=== PATIENT | female | born 1995 | race Caucasian/White ===

== ENCOUNTER 2016-11-02 17:02 | Emergency (ER) | payer OTHER ==
[2016-11-02 20:02] LABS: BASO % 0.3 % (0.0-1.0); EOS # 0.1 K/mm3 (0.0-0.50); LARGE UNSTAINED CELL # 0.1 K/mm3 (0.0-0.4); LARGE UNSTAINED CELL % 1.3 % (0.0-4.0); LYMPH # 1.9 K/mm3 (1.5-6.5); LYMPH % 17.8 % (24.0-44.0); MEAN CORPUSCULAR HGB CONC 33.4 g/dl (32.0-36.5); MEAN CORPUSCULAR VOLUME 89.7 fl (80.0-96.0); MONO # 0.4 K/mm3 (0.0-0.8); MONO % 3.8 % (0.0-5.0); NEUTROPHILS % 75.9 % (36.0-66.0); PLATELET COUNT, AUTOMATED 284 k/mm3 (150-450); RED CELL DISTRIBUTION WIDTH 11.9 % (11.5-14.5); WHITE BLOOD COUNT 10.6 K/mm3 (4.0-10.0)
--- NOTE | 2016-11-02 20:52 | REP ---
Clinical: Early with vaginal bleeding. Technique: Transabdominal obstetrical ultrasound with color Doppler evaluation of the presumed fetus and maternal ovaries. Findings: Single live intrauterine identified. CRL of 6.8 cm corresponds to 13 weeks 0 days gestational age with estimated date of delivery 05/10/2017. heart rate equals 165 beats per minute. No gross abnormalities are identified. Anteverted uterus. Posterior placenta rate zero. Amniotic fluid volume is subjectively normal. Right maternal ovary measures 4.9 x 1.8 x 3.0 cm. Left maternal ovary measures 3.8 x 2.2 x 4.6 cm. No significant pelvic fluid. Impression: Single live early intrauterine at 13 weeks 0 days gestational age. Complete anatomical assessment should be performed at 19-20 weeks. Signed by Noé Hurst MD 11/02/2016 08:43 P
--- NOTE | 2016-11-02 22:40 | EDDOCDS ---
Nurse's Notes [facility] Name: Khloe Dickson Age: 20 yrs Sex: Female : 1995 Arrival Date: 11/02/2016 Time: 17:02 Bed I3 / M3 Private MD: NO PRIMARY PHYSICIAN, . Diagnosis: Threatened Presentation: 11/02 17:13 Presenting complaint: Patient states: she was treating a yeast infection with cream and kcs noticed some blood - not sure if it is anything due to the . Risk factors: The patient reports no loss of conciousness prior to arrival. This patient has not had a hysterectomy. This patient has not begun menopause. Adult Sepsis Screening: The patient does not have new or worsening altered mentation. Patient's respiratory rate is less than 22. Systolic blood pressure is greater than 100. Patient has a qSOFA score of 0- Negative Sepsis Screen. Suicide/Homicide risk assessment- the patient denies having any suicidal and/or homicidal ideations and does not present with any other emotional, behavioral or mental health complaints. Status: The patient is a dependent. Transition of care: patient was not received from another setting of care. 17:13 Acuity: ELDER Level 4 kcs 17:13 Method Of Arrival: Walkin/Carried/Asstd kcs Triage Assessment: 17:15 General: Appears comfortable, well developed, well nourished, well groomed, Behavior is kcs cooperative, pleasant. Pain: Location: bilateral lower abdomen Pain currently is 0 out of 10 on a pain scale. HIV screening NA for this visit done during . Neurological: Level of Consciousness is awake, alert. Respiratory: Airway is patent Respiratory effort is even, unlabored, Respiratory pattern is regular, symmetrical. Derm: Skin is intact, is healthy with good turgor, Skin is dry, Skin is brown. [employer] DEVELOPER: 17:15 1, Full Term 0, Premature 0, 0, Living 0, LMP 08/02/2016 kcs Historical: - Allergies: No known drug Allergies; - Home Meds: 1. Oral 1 tablet daily - PMHx: none; - PSHx: Adenoidectomy; Tonsillectomy; - Social history: Smoking status: Patient states former smoker of tobacco. No barriers to communication noted, The patient speaks fluent Irish. - Family history: Not pertinent. - : The pt / caregiver states he / she is not on anticoagulants. Home medication list is obtained from the patient. - Exposure Risk Screening:: None identified. Screenin:47 Screening information is obtained from the patient. Fall risk: No risks identified. [facility] Assistance ADL's: requires no assistance with activities of daily living. Abuse/DV Screen: The patient / caregiver reports he/she is: not in a situation that causes fear, pain or injury. Nutritional screening: No deficits noted. Advance Directives: There is no active DNR order. home support is adequate. Assessment: 19:47 General: Appears in no apparent distress, comfortable, Behavior is appropriate for age, cjh cooperative, reports scant bleeding that has stopped. Pain: Denies pain. Respiratory: Airway is patent Respiratory effort is even, unlabored, Respiratory pattern is regular, symmetrical. : Reports vaginal bleeding that is light flow. Derm: Skin is pink, warm & dry. 22:38 General: Patient instructed on discharge instructions. Patient asked if there were any jmb questions regarding discharge, patient stated no. Patient signed discharge instructions. IV discontinued per hospital policy. Patient discharged in stable condition. . Vital Signs: 17:04 BP 146 / 76; Pulse 106; Resp 18 S; Temp 98.4(O); Pulse Ox 100% on R/A; Weight 89.36 kg dd6 (R); Height 5 ft. 4 in. (162.56 cm) (R); 22:36 BP 144 / 76 RA Sitting (auto/reg); Pulse 88 MON; Resp 18 S; Temp 98.6(TE); Pulse Ox 99% cln on R/A; Pain 0/10; 17:04 Body Mass Index 33.81 (89.36 kg, 162.56 cm) dd6 Vitals: 17:04 Log In Time: November 02, 2016 at 17:02. dd6 ED Course: 17:03 Patient visited by Jose Wade PCA. dd6 17:03 NO PRIMARY PHYSICIAN, . is Private Physician. dd6 17:03 Patient moved to Waiting dd6 17:05 Patient moved to Pre RCE dd6 17:14 Triage Initiated kcs 18:49 Patient moved to Triage 3 kcs 19:00 Hua Chen RPA-C is PHCP. ck7 19:00 Michelle Woodruff MD is Attending Physician. ck7 19:00 Patient visited by Hua Chen RPA-C. ck7 19:12 Patient moved to I3 / M3 ar3 19:47 The patient / caregiver is instructed regarding the plan of care and ED course. [facility] 19:47 Inserted saline lock: 20 gauge in left antecubital area and blood collected. Labs [facility] drawn. (by ED staff). Sent per order to lab. 19:57 Patient visited by Shonda Turner RN. [facility] 20:19 Patient moved to Ultrasound dmg 20:40 Patient moved to I3 / M3 dmg 20:42 Patient visited by Hua Chen RPA-C. ck7 20:59 US 1st trimester Returned. EDMS 21:17 Patient visited by Hua Chen RPA-C. ck7 21:35 [facility] Payment Agreement was scanned into [employer] and attached to record. gjb 21:57 Patient visited by Hua Chen RPA-C. ck7 22:07 Patient name changed from Khloe\S\\S\Dickson\S\ to Khloe\S\ \S\Dickson. EDMS 22:30 Patient visited by Hua Chen RPA-C. ck7 22:31 Prateek Dos Santos CNM is Referral Physician. ck7 22:37 Patient visited by Latisha Chavarria PCA. cln 22:38 Discontinued lock intact, bleeding controlled, pressure dressing applied, No jmb redness/swelling at site. No procedures done that require assistance. Administered Medications: 19:44 Drug: NS 0.9% 1000 ml [sodium chloride 0.9 % intravenous solution] Route: IV; Rate: jmb bolus; Site: left antecubital; Order Results: Lab Order: CBC with Diff; SPEC'M 11/02/16 19:40 Test: WHITE BLOOD COUNT; Value: 10.6; Range: 4.0-10.0; Abnormal: Above high normal; Units: K/mm3; Status: F Test: RED BLOOD COUNT; Value: 4.17; Range: 4.00-5.40; Units: M/mm3; Status: F Test: HEMOGLOBIN; Value: 12.5; Range: 12.0-16.0; Units: g/dl; Status: F Test: HEMATOCRIT; Value: 37.4; Range: 36.0-47.0; Units: %; Status: F Test: MEAN CORPUSCULAR VOLUME; Value: 89.7; Range: 80.0-96.0; Units: fl; Status: F Test: MEAN CORPUSCULAR HEMOGLOBIN; Value: 30.0; Range: 27.0-33.0; Units: pg; Status: F Test: MEAN CORPUSCULAR HGB CONC; Value: 33.4; Range: 32.0-36.5; Units: g/dl; Status: F Test: RED CELL DISTRIBUTION WIDTH; Value: 11.9; Range: 11.5-14.5; Units: %; Status: F Test: PLATELET COUNT, AUTOMATED; Value: 284; Range: 150-450; Units: k/mm3; Status: F Test: NEUTROPHILS %; Value: 75.9; Range: 36.0-66.0; Abnormal: Above high normal; Units: %; Status: F Test: LYMPH %; Value: 17.8; Range: 24.0-44.0; Abnormal: Below low normal; Units: %; Status: F Test: MONO %; Value: 3.8; Range: 0.0-5.0; Units: %; Status: F Test: EOS %; Value: 1.0; Range: 0.0-3.0; Units: %; Status: F Test: BASO %; Value: 0.3; Range: 0.0-1.0; Units: %; Status: F Test: LARGE UNSTAINED CELL %; Value: 1.3; Range: 0.0-4.0; Units: %; Status: F Test: NEUTROPHILS #; Value: 8.0; Range: 1.8-7.7; Abnormal: Above high normal; Units: K/mm3; Status: F Test: LYMPH #; Value: 1.9; Range: 1.5-6.5; Units: K/mm3; Status: F Test: MONO #; Value: 0.4; Range: 0.0-0.8; Units: K/mm3; Status: F Test: EOS #; Value: 0.1; Range: 0.0-0.50; Units: K/mm3; Status: F Test: BASO #; Value: 0.0; Range: 0.0-0.2; Units: K/mm3; Status: F Test: LARGE UNSTAINED CELL #; Value: 0.1; Range: 0.0-0.4; Units: K/mm3; Status: F Lab Order: UA; SPEC'M 11/02/16 19:40 Test: APPEARANCE, URINE; Value: HAZY; Range: CLEAR; Status: F Test: COLOR, URINE; Value: YELLOW; Range: YELLOW; Status: F Test: PH,URINE; Value: 6.0; Range: 5.0-9.0; Units: UNITS; Status: F Test: SPECIFIC GRAVITY URINE AUTO; Value: 1.016; Range: 1.002-1.035; Status: F Test: PROTEIN, URINE AUTO; Value: NEGATIVE; Range: NEGATIVE; Units: mg/dL; Status: F Test: GLUCOSE, URINE (UA) AUTO; Value: NEGATIVE; Range: NEGATIVE; Units: mg/dL; Status: F Test: KETONE, URINE AUTO; Value: 1+; Range: NEGATIVE; Abnormal: Above high normal; Units: mg/dL; Status: F Test: UROBILINOGEN, URINE AUTO; Value: 0.2; Range: 0.0-2.0; Units: mg/dL; Status: F Test: BILIRUBIN, URINE AUTO; Value: NEGATIVE; Range: NEGATIVE; Status: F Test: NITRITE, URINE AUTO; Value: NEGATIVE; Range: NEGATIVE; Status: F Test: LEUKOCYTE ESTERASE, URINE AUTO; Value: NEGATIVE; Range: NEGATIVE; Status: F Test: BLOOD, URINE BLOOD; Value: NEGATIVE; Range: NEGATIVE; Status: F Test: WBC, URINE AUTO; Value: 2; Range: 0-3; Units: /HPF; Status: F Test: RBC, URINE AUTO; Value: 2; Range: 0-3; Units: /HPF; Status: F Test: BACTERIA, URINE AUTO; Value: 2+; Range: NEGATIVE; Abnormal: Above high normal; Status: F Test: SQUAMOUS EPITHELIAL CELL UR AU; Value: 5; Range: 0-6; Units: /HPF; Status: F Test: MUCUS, URINE; Value: SMALL; Range: NEGATIVE; Status: F Test: HYALINE CAST, URINE AUTO; Value: 0; Range: 0-1; Units: /LPF; Status: F Lab Order: Type & Screen; SPEC'M 11/02/16 19:40 Test: BLOOD TYPE; Value: A POS; Status: F Test: AB SCREEN (INDIRECT RENEE)GEL; Value: NEGATIVE; Status: F Lab Order: Hcg, Serum Quantitative; GIANNA 11/02/16 19:40 Test: HCG, SERUM QUANTITATIVE; Value: 25131; Units: MIU/ML; Status: F Test Note: ; GESTATIONAL AGE APPROXIMATE HCG RANGE (MIU/ML) 0.2-1 WEEK 5-50 1-2 WEEKS 50-500 2-3 WEEKS 100-5,000 3-4 WEEKS 500-10,000 4-5 WEEKS 1,000-50,000 5-6 WEEKS 10,000-100,000 6-8 WEEKS 15,000-200,000 2-3 MONTHS 10,000-100,000 NON FEMALES LESS THAN 3.0 Patient samples may contain human heterophilic antibodies that could react with immunoassays to give falsely elevated or depressed results. This assay has been designed to minimize interference from heterophilic antibodies. Elevated hCG levels have also been associated with trophoblastic disease and nontrophoblastic neoplasms. The possibility of having these diseases should be considered before a diagnosis of is made. This test is not intended for use as a surrogate marker for aiding in the diagnosis or monitoring the treatment of cancer patients. Siemens [employer] methodology. Lab Order: Wet Prep; GIANNA 11/02/16 21:30 Test: WET PREP; Value: WET PREP RESULT; Status: F Test: WET PREP; Value: FEW WBC; Status: F Test: WET PREP; Value: FEW EPITHELIAL CELLS PRESENT; Status: F Test: WET PREP; Value: MODERATE LONG RODS PRESENT; Status: F Radiology Order: US 1st trimester Test: US 1st trimester REASON FOR EXAMINATION: Bleeding; Clinical: Early with vaginal bleeding.; ; Technique: Transabdominal obstetrical ultrasound with color Doppler evaluation; of the presumed fetus and maternal ovaries.; ; Findings:; Single live intrauterine identified. CRL of 6.8 cm corresponds to 13; weeks 0 days gestational age with estimated date of delivery 05/10/2017. ; heart rate equals 165 beats per minute. No gross abnormalities are identified.; ; Anteverted uterus. Posterior placenta rate zero. Amniotic fluid volume is; subjectively normal. Right maternal ovary measures 4.9 x 1.8 x 3.0 cm. Left; maternal ovary measures 3.8 x 2.2 x 4.6 cm. No significant pelvic fluid.; ; Impression:; Single live early intrauterine at 13 weeks 0 days gestational age.; Complete anatomical assessment should be performed at 19-20 weeks.; ; ; Signed by; Noé Hurst MD 11/02/2016 08:43 P; Outcome: 22:31 Discharge ordered by Provider. ck7 22:38 Discharge Assessment: Patient awake, alert and oriented x 3. No cognitive and/or jmb functional deficits noted. Patient verbalized understanding of disposition instructions. Patient awake and alert. obeys commands, Oriented to person, place and time. Patient verbalized understanding of disposition instructions. Patient has no functional deficits. patient administered narcotics - no. The following High Risk Discharge criteria are identified: None. Discharged to home ambulatory. Condition: stable Condition: improved. Discharge instructions given to patient, Instructed on discharge instructions, follow up and referral plans. Demonstrated understanding of instructions, Pt was receptive of discharge instructions/ teaching. Ultrasound Study completed. Property sent home with patient. 22:40 Patient left the ED. bertin Signatures: Dispatcher [employer] EDMS Sophie Parker, RN Briana Ovalles Daniell, COMMERCIAL ART INSTRUCTOR COMMERCIAL ART INSTRUCTOR dd6 Allyson Foy, COMMERCIAL ART INSTRUCTOR COMMERCIAL ART INSTRUCTOR ar3 Shonda Turner RN RN cjh Kwaczala, Christopher, RPA-C RPA-Cck7 George WoodsRN Yolis Yap Crystal, COMMERCIAL ART INSTRUCTOR COMMERCIAL ART INSTRUCTOR cln MTDD
--- NOTE | 2016-11-02 22:40 | EDDOCDS ---
Physician Documentation [facility] Name: Khloe Dickson Age: 20 yrs Sex: Female : 1995 Arrival Date: 11/02/2016 Time: 17:02 Bed I3 / M3 Private MD: NO PRIMARY PHYSICIAN, . Disposition: 11/02/16 22:31 Discharged to Home/Self Care. Impression: Threatened . - Condition is Stable. - Discharge Instructions: Threatened Miscarriage, Pelvic Rest. - Medication Reconciliation, Local Pharmacy Hours form. - Follow up: Prateek Dos Santos CNM; When: 1 - 2 days; Reason: Recheck today's complaints, Continuance of care. - Problem is new. - Symptoms have improved. - Notes: FOLLOW UP WITH YOUR OB DOCTOR IN 1-2 DAYS, RETURN TO THE ER IF THE BLEEDING INCREASES OR PAIN INCREASES Historical: - Allergies: No known drug Allergies; - Home Meds: 1. Oral 1 tablet daily - PMHx: none; - PSHx: Adenoidectomy; Tonsillectomy; - Social history: Smoking status: Patient states former smoker of tobacco. No barriers to communication noted, The patient speaks fluent Finnish. - Family history: Not pertinent. - : The pt / caregiver states he / she is not on anticoagulants. Home medication list is obtained from the patient. - Exposure Risk Screening:: None identified. 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 4 in. (162.56 cm) (R); 22:36 BP 144 / 76 RA Sitting (auto/reg); Pulse 88 MON; Resp 18 S; Temp 98.6(TE); Pulse Ox 99% cln on R/A; Pain 0/10; 17:04 Body Mass Index 33.81 (89.36 kg, 162.56 cm) dd6 MDM: 19:16 Set up pelvic ordered. ck7 19:16 IV Saline Lock ordered. ck7 19:16 NS 0.9% 1000 ml IV at bolus once ordered. ck7 19:17 Type & Screen Ordered. EDMS 19:17 CBC with Diff Ordered. EDMS 19:17 UA Ordered. EDMS 19:17 Hcg, Serum Quantitative Ordered. EDMS 19:17 GC & Chlamydia Amplification Ordered. EDMS 19:17 Urine Culture Ordered. EDMS 19:17 Wet Prep Ordered. EDMS 19:18 US 1st trimester Ordered. EDMS 21:17 CBC with Diff Reviewed. ck7 21:17 UA Reviewed. ck7 21:17 Type & Screen Reviewed. ck7 21:17 Hcg, Serum Quantitative Reviewed. ck7 21:17 US 1st trimester Reviewed. ck7 21:20 Financial registration complete. gjb 21:35 [facility] Payment Agreement was scanned into [employer] and attached to record. gjb 22:11 Wet Prep Reviewed. ck7 Administered Medications: 19:44 Drug: NS 0.9% 1000 ml [sodium chloride 0.9 % intravenous solution] Route: IV; Rate: jmb bolus; Site: left antecubital; Signatures: Dispatcher [employer] Sophie Chin, RN Shonda LemusRN RN [facility] Hua Chen, RPA-C RPA-Cck7 George Woods RN RN jmb Beck, Gabriela gjb The chart was reviewed and I authenticate all verbal orders and agree with the evaluation and treatment provided.Attachments: 21:35 [facility] Payment Agreement gj MTDD
--- NOTE | 2016-11-04 23:41 | EDDOCDS ---
Physician Documentation [facility] Name: Khloe Dickson Age: 20 yrs Sex: Female : 1995 Arrival Date: 11/02/2016 Time: 17:02 Bed I3 / M3 Private MD: NO PRIMARY PHYSICIAN, . Disposition: 11/02/16 22:31 Discharged to Home/Self Care. Impression: Threatened . - Condition is Stable. - Discharge Instructions: Threatened Miscarriage, Pelvic Rest. - Medication Reconciliation, Local Pharmacy Hours form. - Follow up: Prateek Dos Santos CNM; When: 1 - 2 days; Reason: Recheck today's complaints, Continuance of care. - Problem is new. - Symptoms have improved. - Notes: FOLLOW UP WITH YOUR OB DOCTOR IN 1-2 DAYS, RETURN TO THE ER IF THE BLEEDING INCREASES OR PAIN INCREASES Historical: - Allergies: No known drug Allergies; - Home Meds: 1. Oral 1 tablet daily - PMHx: none; - PSHx: Adenoidectomy; Tonsillectomy; - Social history: Smoking status: Patient states former smoker of tobacco. No barriers to communication noted, The patient speaks fluent Czech. - Family history: Not pertinent. - : The pt / caregiver states he / she is not on anticoagulants. Home medication list is obtained from the patient. - Exposure Risk Screening:: None identified. 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 4 in. (162.56 cm) (R); 22:36 BP 144 / 76 RA Sitting (auto/reg); Pulse 88 MON; Resp 18 S; Temp 98.6(TE); Pulse Ox 99% cln on R/A; Pain 0/10; 17:04 Body Mass Index 33.81 (89.36 kg, 162.56 cm) dd6 MDM: 19:16 Set up pelvic ordered. ck7 19:16 IV Saline Lock ordered. ck7 19:16 NS 0.9% 1000 ml IV at bolus once ordered. ck7 19:17 Type & Screen Ordered. EDMS 19:17 CBC with Diff Ordered. EDMS 19:17 UA Ordered. EDMS 19:17 Hcg, Serum Quantitative Ordered. EDMS 19:17 GC & Chlamydia Amplification Ordered. EDMS 19:17 Urine Culture Ordered. EDMS 19:17 Wet Prep Ordered. EDMS 19:18 US 1st trimester Ordered. EDMS 21:17 CBC with Diff Reviewed. ck7 21:17 UA Reviewed. ck7 21:17 Type & Screen Reviewed. ck7 21:17 Hcg, Serum Quantitative Reviewed. ck7 21:17 US 1st trimester Reviewed. ck7 21:20 Financial registration complete. gjb 21:35 [facility] Payment Agreement was scanned into [email or web address] and attached to record. gjb 22:11 Wet Prep Reviewed. ck7 11/03 05:35 T-Sheet-- Draft Copy was scanned into [email or web address] and attached to record. lja Administered Medications: 11/02 19:44 Drug: NS 0.9% 1000 ml [sodium chloride 0.9 % intravenous solution] Route: IV; Rate: jmb bolus; Site: left antecubital; Signatures: Dispatcher [employer] Sophie Chin RN RN kcs Hafner, Jane, RN RN cjh Kwaczala, Christopher, RPA-C RPA-Cck7 George WoodsRN RADHA Gonzalez, Yolis Alvarado The chart was reviewed and I authenticate all verbal orders and agree with the evaluation and treatment provided.Attachments: 21:35 [facility] Payment Agreement gjb 11/03 05:35 T-Sheet-- Draft Copy debra Chart Complete MTDD
--- NOTE | 2016-11-04 23:41 | EDDOCDS ---
Physician Documentation [facility] Name: Khloe Dickson Age: 20 yrs Sex: Female : 1995 Arrival Date: 11/02/2016 Time: 17:02 Bed I3 / M3 Private MD: NO PRIMARY PHYSICIAN, . Disposition: 11/02/16 22:31 Discharged to Home/Self Care. Impression: Threatened . - Condition is Stable. - Discharge Instructions: Threatened Miscarriage, Pelvic Rest. - Medication Reconciliation, Local Pharmacy Hours form. - Follow up: Prateek Dos Santos CNM; When: 1 - 2 days; Reason: Recheck today's complaints, Continuance of care. - Problem is new. - Symptoms have improved. - Notes: FOLLOW UP WITH YOUR OB DOCTOR IN 1-2 DAYS, RETURN TO THE ER IF THE BLEEDING INCREASES OR PAIN INCREASES Historical: - Allergies: No known drug Allergies; - Home Meds: 1. Oral 1 tablet daily - PMHx: none; - PSHx: Adenoidectomy; Tonsillectomy; - Social history: Smoking status: Patient states former smoker of tobacco. No barriers to communication noted, The patient speaks fluent Sinhala. - Family history: Not pertinent. - : The pt / caregiver states he / she is not on anticoagulants. Home medication list is obtained from the patient. - Exposure Risk Screening:: None identified. 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 4 in. (162.56 cm) (R); 22:36 BP 144 / 76 RA Sitting (auto/reg); Pulse 88 MON; Resp 18 S; Temp 98.6(TE); Pulse Ox 99% cln on R/A; Pain 0/10; 17:04 Body Mass Index 33.81 (89.36 kg, 162.56 cm) dd6 MDM: 19:16 Set up pelvic ordered. ck7 19:16 IV Saline Lock ordered. ck7 19:16 NS 0.9% 1000 ml IV at bolus once ordered. ck7 19:17 Type & Screen Ordered. EDMS 19:17 CBC with Diff Ordered. EDMS 19:17 UA Ordered. EDMS 19:17 Hcg, Serum Quantitative Ordered. EDMS 19:17 GC & Chlamydia Amplification Ordered. EDMS 19:17 Urine Culture Ordered. EDMS 19:17 Wet Prep Ordered. EDMS 19:18 US 1st trimester Ordered. EDMS 21:17 CBC with Diff Reviewed. ck7 21:17 UA Reviewed. ck7 21:17 Type & Screen Reviewed. ck7 21:17 Hcg, Serum Quantitative Reviewed. ck7 21:17 US 1st trimester Reviewed. ck7 21:20 Financial registration complete. gjb 21:35 [facility] Payment Agreement was scanned into [employer] and attached to record. gjb 22:11 Wet Prep Reviewed. ck7 11/03 05:35 T-Sheet-- Draft Copy was scanned into [employer] and attached to record. lja Administered Medications: 11/02 19:44 Drug: NS 0.9% 1000 ml [sodium chloride 0.9 % intravenous solution] Route: IV; Rate: jmb bolus; Site: left antecubital; Signatures: Dispatcher [employer] Sophie Chin RN RN kcs Hafner, Jane, RN RN cjh Kwaczala, Christopher, RPA-C RPA-Cck7 George WoodsRN RADHA Gonzalez, Yolis Alvarado The chart was reviewed and I authenticate all verbal orders and agree with the evaluation and treatment provided.Attachments: 21:35 [facility] Payment Agreement gjb 11/03 05:35 T-Sheet-- Draft Copy debra Chart Complete MTDD
--- NOTE | 2016-11-04 23:41 | EDDOCDS ---
Nurse's Notes [facility] Name: Khloe Dickson Age: 20 yrs Sex: Female : 1995 Arrival Date: 11/02/2016 Time: 17:02 Bed I3 / M3 Private MD: NO PRIMARY PHYSICIAN, . Diagnosis: Threatened Presentation: 11/02 17:13 Presenting complaint: Patient states: she was treating a yeast infection with cream and kcs noticed some blood - not sure if it is anything due to the . Risk factors: The patient reports no loss of conciousness prior to arrival. This patient has not had a hysterectomy. This patient has not begun menopause. Adult Sepsis Screening: The patient does not have new or worsening altered mentation. Patient's respiratory rate is less than 22. Systolic blood pressure is greater than 100. Patient has a qSOFA score of 0- Negative Sepsis Screen. Suicide/Homicide risk assessment- the patient denies having any suicidal and/or homicidal ideations and does not present with any other emotional, behavioral or mental health complaints. Status: The patient is a dependent. Transition of care: patient was not received from another setting of care. 17:13 Acuity: ELDER Level 4 kcs 17:13 Method Of Arrival: Walkin/Carried/Asstd kcs Triage Assessment: 17:15 General: Appears comfortable, well developed, well nourished, well groomed, Behavior is kcs cooperative, pleasant. Pain: Location: bilateral lower abdomen Pain currently is 0 out of 10 on a pain scale. HIV screening NA for this visit done during . Neurological: Level of Consciousness is awake, alert. Respiratory: Airway is patent Respiratory effort is even, unlabored, Respiratory pattern is regular, symmetrical. Derm: Skin is intact, is healthy with good turgor, Skin is dry, Skin is brown. SCRIPT GIRL: 17:15 1, Full Term 0, Premature 0, 0, Living 0, LMP 08/02/2016 kcs Historical: - Allergies: No known drug Allergies; - Home Meds: 1. Oral 1 tablet daily - PMHx: none; - PSHx: Adenoidectomy; Tonsillectomy; - Social history: Smoking status: Patient states former smoker of tobacco. No barriers to communication noted, The patient speaks fluent Syriac. - Family history: Not pertinent. - : The pt / caregiver states he / she is not on anticoagulants. Home medication list is obtained from the patient. - Exposure Risk Screening:: None identified. Screenin:47 Screening information is obtained from the patient. Fall risk: No risks identified. [facility] Assistance ADL's: requires no assistance with activities of daily living. Abuse/DV Screen: The patient / caregiver reports he/she is: not in a situation that causes fear, pain or injury. Nutritional screening: No deficits noted. Advance Directives: There is no active DNR order. home support is adequate. Assessment: 19:47 General: Appears in no apparent distress, comfortable, Behavior is appropriate for age, cjh cooperative, reports scant bleeding that has stopped. Pain: Denies pain. Respiratory: Airway is patent Respiratory effort is even, unlabored, Respiratory pattern is regular, symmetrical. : Reports vaginal bleeding that is light flow. Derm: Skin is pink, warm & dry. 22:38 General: Patient instructed on discharge instructions. Patient asked if there were any jmb questions regarding discharge, patient stated no. Patient signed discharge instructions. IV discontinued per hospital policy. Patient discharged in stable condition. . Vital Signs: 17:04 BP 146 / 76; Pulse 106; Resp 18 S; Temp 98.4(O); Pulse Ox 100% on R/A; Weight 89.36 kg dd6 (R); Height 5 ft. 4 in. (162.56 cm) (R); 22:36 BP 144 / 76 RA Sitting (auto/reg); Pulse 88 MON; Resp 18 S; Temp 98.6(TE); Pulse Ox 99% cln on R/A; Pain 0/10; 17:04 Body Mass Index 33.81 (89.36 kg, 162.56 cm) dd6 Vitals: 17:04 Log In Time: November 02, 2016 at 17:02. dd6 ED Course: 17:03 Patient visited by Jose Wade PCA. dd6 17:03 NO PRIMARY PHYSICIAN, . is Private Physician. dd6 17:03 Patient moved to Waiting dd6 17:05 Patient moved to Pre RCE dd6 17:14 Triage Initiated kcs 18:49 Patient moved to Triage 3 kcs 19:00 Hua Chen RPA-C is PHCP. ck7 19:00 Michelle Woodruff MD is Attending Physician. ck7 19:00 Patient visited by Hua Chen RPA-C. ck7 19:12 Patient moved to I3 / M3 ar3 19:47 The patient / caregiver is instructed regarding the plan of care and ED course. [facility] 19:47 Inserted saline lock: 20 gauge in left antecubital area and blood collected. Labs [facility] drawn. (by ED staff). Sent per order to lab. 19:57 Patient visited by Shonda Turner RN. [facility] 20:19 Patient moved to Ultrasound dmg 20:40 Patient moved to I3 / M3 dmg 20:42 Patient visited by Hua Chen RPA-C. ck7 20:59 US 1st trimester Returned. EDMS 21:17 Patient visited by Hua Chen RPA-C. ck7 21:35 [facility] Payment Agreement was scanned into [employer] and attached to record. gjb 21:57 Patient visited by Hua Chen RPA-C. ck7 22:07 Patient name changed from Khloe\S\\S\Dickson\S\ to Khloe\S\ \S\Dickson. EDMS 22:30 Patient visited by Hua Chen RPA-C. ck7 22:31 Prateek Dos Santos CNM is Referral Physician. ck7 22:37 Patient visited by Latisha Chavarria PCA. cln 22:38 Discontinued lock intact, bleeding controlled, pressure dressing applied, No jmb redness/swelling at site. No procedures done that require assistance. 11/03 05:35 T-Sheet-- Draft Copy was scanned into [employer] and attached to record. hennaa Administered Medications: 11/02 19:44 Drug: NS 0.9% 1000 ml [sodium chloride 0.9 % intravenous solution] Route: IV; Rate: jmb bolus; Site: left antecubital; Order Results: Lab Order: CBC with Diff; SPEC'M 11/02/16 19:40 Test: WHITE BLOOD COUNT; Value: 10.6; Range: 4.0-10.0; Abnormal: Above high normal; Units: K/mm3; Status: F Test: RED BLOOD COUNT; Value: 4.17; Range: 4.00-5.40; Units: M/mm3; Status: F Test: HEMOGLOBIN; Value: 12.5; Range: 12.0-16.0; Units: g/dl; Status: F Test: HEMATOCRIT; Value: 37.4; Range: 36.0-47.0; Units: %; Status: F Test: MEAN CORPUSCULAR VOLUME; Value: 89.7; Range: 80.0-96.0; Units: fl; Status: F Test: MEAN CORPUSCULAR HEMOGLOBIN; Value: 30.0; Range: 27.0-33.0; Units: pg; Status: F Test: MEAN CORPUSCULAR HGB CONC; Value: 33.4; Range: 32.0-36.5; Units: g/dl; Status: F Test: RED CELL DISTRIBUTION WIDTH; Value: 11.9; Range: 11.5-14.5; Units: %; Status: F Test: PLATELET COUNT, AUTOMATED; Value: 284; Range: 150-450; Units: k/mm3; Status: F Test: NEUTROPHILS %; Value: 75.9; Range: 36.0-66.0; Abnormal: Above high normal; Units: %; Status: F Test: LYMPH %; Value: 17.8; Range: 24.0-44.0; Abnormal: Below low normal; Units: %; Status: F Test: MONO %; Value: 3.8; Range: 0.0-5.0; Units: %; Status: F Test: EOS %; Value: 1.0; Range: 0.0-3.0; Units: %; Status: F Test: BASO %; Value: 0.3; Range: 0.0-1.0; Units: %; Status: F Test: LARGE UNSTAINED CELL %; Value: 1.3; Range: 0.0-4.0; Units: %; Status: F Test: NEUTROPHILS #; Value: 8.0; Range: 1.8-7.7; Abnormal: Above high normal; Units: K/mm3; Status: F Test: LYMPH #; Value: 1.9; Range: 1.5-6.5; Units: K/mm3; Status: F Test: MONO #; Value: 0.4; Range: 0.0-0.8; Units: K/mm3; Status: F Test: EOS #; Value: 0.1; Range: 0.0-0.50; Units: K/mm3; Status: F Test: BASO #; Value: 0.0; Range: 0.0-0.2; Units: K/mm3; Status: F Test: LARGE UNSTAINED CELL #; Value: 0.1; Range: 0.0-0.4; Units: K/mm3; Status: F Lab Order: UA; SPEC'M 11/02/16 19:40 Test: APPEARANCE, URINE; Value: HAZY; Range: CLEAR; Status: F Test: COLOR, URINE; Value: YELLOW; Range: YELLOW; Status: F Test: PH,URINE; Value: 6.0; Range: 5.0-9.0; Units: UNITS; Status: F Test: SPECIFIC GRAVITY URINE AUTO; Value: 1.016; Range: 1.002-1.035; Status: F Test: PROTEIN, URINE AUTO; Value: NEGATIVE; Range: NEGATIVE; Units: mg/dL; Status: F Test: GLUCOSE, URINE (UA) AUTO; Value: NEGATIVE; Range: NEGATIVE; Units: mg/dL; Status: F Test: KETONE, URINE AUTO; Value: 1+; Range: NEGATIVE; Abnormal: Above high normal; Units: mg/dL; Status: F Test: UROBILINOGEN, URINE AUTO; Value: 0.2; Range: 0.0-2.0; Units: mg/dL; Status: F Test: BILIRUBIN, URINE AUTO; Value: NEGATIVE; Range: NEGATIVE; Status: F Test: NITRITE, URINE AUTO; Value: NEGATIVE; Range: NEGATIVE; Status: F Test: LEUKOCYTE ESTERASE, URINE AUTO; Value: NEGATIVE; Range: NEGATIVE; Status: F Test: BLOOD, URINE BLOOD; Value: NEGATIVE; Range: NEGATIVE; Status: F Test: WBC, URINE AUTO; Value: 2; Range: 0-3; Units: /HPF; Status: F Test: RBC, URINE AUTO; Value: 2; Range: 0-3; Units: /HPF; Status: F Test: BACTERIA, URINE AUTO; Value: 2+; Range: NEGATIVE; Abnormal: Above high normal; Status: F Test: SQUAMOUS EPITHELIAL CELL UR AU; Value: 5; Range: 0-6; Units: /HPF; Status: F Test: MUCUS, URINE; Value: SMALL; Range: NEGATIVE; Status: F Test: HYALINE CAST, URINE AUTO; Value: 0; Range: 0-1; Units: /LPF; Status: F Lab Order: Urine Culture; SPEC11/02/16 19:40 Test: URINE CULTURE; Value: URINE CULTURE RESULT NO GROWTH CLINICAL SIGNIFICANCE 1 ORGANISM; Status: F Lab Order: Type & Screen; RADHACristel 11/02/16 19:40 Test: BLOOD TYPE; Value: A POS; Status: F Test: AB SCREEN (INDIRECT RENEE)GEL; Value: NEGATIVE; Status: F Lab Order: Hcg, Serum Quantitative; 11/02/16 19:40 Test: HCG, SERUM QUANTITATIVE; Value: [id number]; Units: MIU/ML; Status: F Test Note: ; GESTATIONAL AGE APPROXIMATE HCG RANGE (MIU/ML) 0.2-1 WEEK 5-50 1-2 WEEKS 50-500 2-3 WEEKS 100-5,000 3-4 WEEKS 500-10,000 4-5 WEEKS 1,000-50,000 5-6 WEEKS 10,000-100,000 6-8 WEEKS 15,000-200,000 2-3 MONTHS 10,000-100,000 NON FEMALES LESS THAN 3.0 Patient samples may contain human heterophilic antibodies that could react with immunoassays to give falsely elevated or depressed results. This assay has been designed to minimize interference from heterophilic antibodies. Elevated hCG levels have also been associated with trophoblastic disease and nontrophoblastic neoplasms. The possibility of having these diseases should be considered before a diagnosis of is made. This test is not intended for use as a surrogate marker for aiding in the diagnosis or monitoring the treatment of cancer patients. [employer] Wav[employer] methodology. Lab Order: GC & Chlamydia Amplification; SPECM 11/02/16 21:30 Test: CHLAMYDIA DNA AMPLIFICATION; Value: NEGATIVE; Range: NEGATIVE; Status: F Test: GC DNA AMPLIFICATION; Value: NEGATIVE; Range: NEGATIVE; Status: F Lab Order: Wet Prep; SPECM 11/02/16 21:30 Test: WET PREP; Value: WET PREP RESULT; Status: F Test: WET PREP; Value: FEW WBC; Status: F Test: WET PREP; Value: FEW EPITHELIAL CELLS PRESENT; Status: F Test: WET PREP; Value: MODERATE LONG RODS PRESENT; Status: F Radiology Order: US 1st trimester Test: US 1st trimester REASON FOR EXAMINATION: Bleeding; Clinical: Early with vaginal bleeding.; ; Technique: Transabdominal obstetrical ultrasound with color Doppler evaluation; of the presumed fetus and maternal ovaries.; ; Findings:; Single live intrauterine identified. CRL of 6.8 cm corresponds to 13; weeks 0 days gestational age with estimated date of delivery 05/10/2017. ; heart rate equals 165 beats per minute. No gross abnormalities are identified.; ; Anteverted uterus. Posterior placenta rate zero. Amniotic fluid volume is; subjectively normal. Right maternal ovary measures 4.9 x 1.8 x 3.0 cm. Left; maternal ovary measures 3.8 x 2.2 x 4.6 cm. No significant pelvic fluid.; ; Impression:; Single live early intrauterine at 13 weeks 0 days gestational age.; Complete anatomical assessment should be performed at 19-20 weeks.; ; ; Signed by; Noé Hurst MD 11/02/2016 08:43 P; Outcome: 22:31 Discharge ordered by Provider. ck7 22:38 Discharge Assessment: Patient awake, alert and oriented x 3. No cognitive and/or jmb functional deficits noted. Patient verbalized understanding of disposition instructions. Patient awake and alert. obeys commands, Oriented to person, place and time. Patient verbalized understanding of disposition instructions. Patient has no functional deficits. patient administered narcotics - no. The following High Risk Discharge criteria are identified: None. Discharged to home ambulatory. Condition: stable Condition: improved. Discharge instructions given to patient, Instructed on discharge instructions, follow up and referral plans. Demonstrated understanding of instructions, Pt was receptive of discharge instructions/ teaching. Ultrasound Study completed. Property sent home with patient. 22:40 Patient left the ED. bertin Signatures: Dispatcher [employer] Sophie Chin, RN Briana Ovalles Daniell, PAINT BOOTH OPERATOR PAINT BOOTH OPERATOR dd6 Allyson Foy, PAINT BOOTH OPERATOR PAINT BOOTH OPERATOR ar3 Shonda Turner RN RN Hua Eubanks, RPA-C [id number]-[id number] George Woods RN RN jmb Arel, Lisa lja Beck, Gabriela gjb Nichols, Crystal, PAINT BOOTH OPERATOR PAINT BOOTH OPERATOR cln Chart Complete MTDD
== END 2016-11-02 22:40 | disposition home or self-care (01) ==
LOC: M ED 17:02
DX: O20.0 Threatened abortion (principal); Z79.899 Other long term (current) drug therapy; Z87.891 Personal history of nicotine dependence; Z90.89 Acquired absence of other organs; Z3A.13 13 weeks gestation of pregnancy